=== PATIENT | female | born 1950 | race Caucasian/White ===

== ENCOUNTER 2017-03-11 21:05 | Emergency (ER) | payer SELFPAY, OTHER, MEDICARE | END 2017-03-12 00:55 | disposition left against medical advice (07) | LOC: E/R 21:05 | DX: Z53.21 Procedure and treatment not carried out due to patient leaving prior to being seen by health care provider (principal) ==

== ENCOUNTER 2017-03-13 11:44 | Emergency (ER) | payer MEDICARE, OTHER ==
[2017-03-13 15:56] LABS: ANION GAP 13 (8-16); BLOOD UREA NITROGEN 14 mg/dl (7-20); CALCIUM 9.3 mg/dl (8.4-10.2); CARBON DIOXIDE 26 mmol/L (21-31); CHLORIDE 102 mmol/L (97-110); CREATININE 0.71 mg/dl (0.44-1.00); GLUCOSE 98 mg/dl (70-220); POTASSIUM 4.6 mmol/L (3.5-5.1); SODIUM 136 mmol/L (135-144)
[2017-03-13] MEDS: SOD CHLORIDE 0.9% 100 ML (16:48)
[2017-03-13] MEDS: IOHEXOL 300MG/ML 150 ML BTL (16:49)
== END 2017-03-13 18:26 | disposition home or self-care (01) ==
LOC: FTE 11:44
DX: N39.0 Urinary tract infection, site not specified (principal); F41.8 Other specified anxiety disorders; I10 Essential (primary) hypertension; Z87.448 Personal history of other diseases of urinary system; Z79.82 Long term (current) use of aspirin
CPT/HCPCS: 72194; 80048; 99285-25

== ENCOUNTER 2017-08-29 17:00 | Emergency (ER) | payer MEDICARE, OTHER | END 2017-08-29 18:40 | disposition home or self-care (01) | LOC: FTE 17:00 | DX: J01.90 Acute sinusitis, unspecified (principal); I10 Essential (primary) hypertension; Z79.82 Long term (current) use of aspirin | CPT/HCPCS: 99284 ==

== ENCOUNTER 2018-01-03 16:00 | Emergency (ER) | payer MEDICARE, OTHER ==
[2018-01-03 17:02] LABS: ADD MAN DIFF? NO
[2018-01-03 17:03] LABS: WHITE BLOOD COUNT 7.8 10^3/ul (4.8-10.8)
[2018-01-03 17:03] LABS: BASOPHIL # 0.1 10^3/ul (0.0-0.1); BASOPHILS % 0.9 % (0.0-2.0); EOSINOPHILS # 0.3 10^3/ul (0.0-0.5); EOSINOPHILS % 4.4 % (0.0-7.0); HEMATOCRIT 39.2 % (37.0-47.0); HEMOGLOBIN 13.2 g/dl (12.0-16.0); LYMPHOCYTES # 2.4 10^3/ul (0.8-2.9); LYMPHOCYTES % 31.4 % (15.0-51.0); MEAN CORPUSCULAR HEMOGLOBIN 31.2 pg (29.0-33.0); MEAN CORPUSCULAR HGB CONC 33.7 g/dl (32.0-37.0); MEAN CORPUSCULAR VOLUME 92.7 fl (82.0-101.0); MEAN PLATELET VOLUME 10.5 fl (7.4-10.4); MONOCYTE # 0.8 10^3/ul (0.3-0.9); MONOCYTES % 10.7 % (0.0-11.0); NEUTROPHIL # 4.1 10^3/ul (1.6-7.5); NEUTROPHILS % 52.2 % (39.0-77.0); PLATELET COUNT 281 10^3/UL (140-415); RED BLOOD COUNT 4.23 10^6/ul (4.20-5.40); RED CELL DISTRIBUTION WIDTH 12.2 % (11.5-14.5)
[2018-01-03] MEDS: SOD CHLORIDE 0.9% 1,000 ML IV (17:03)
[2018-01-03] MEDS: HYDROmorphONE 1 MG/ML SYG IV (17:03)
[2018-01-03] MEDS: ONDANSETRON 4 MG INJ IV (17:03)
[2018-01-03 17:17] LABS: ADD UMIC YES; UR ASCORBIC ACID NEGATIVE (NEGATIVE); UR BACTERIA MODERATE /HPF (NONE SEEN); UR BILIRUBIN (Dip) NEGATIVE (NEGATIVE); UR BLOOD (Dip) 2+ mg/dL (NEGATIVE); UR CLARITY SLIGHTLY CLOUDY (CLEAR); UR COLOR YELLOW (YELLOW); UR GLUCOSE (Dip) NEGATIVE (NEGATIVE); UR KETONES (Dip) NEGATIVE (NEGATIVE); UR LEUKOCYTE ESTERASE (Dip) 2+ Leu/ul (NEGATIVE); UR MUCUS FEW /HPF (NONE SEEN); UR NITRITE (Dip) POSITIVE (NEGATIVE); UR RBC 7 /HPF (0-5); UR SPECIFIC GRAVITY (Dip) 1.021 (1.003-1.030); UR TOTAL PROTEIN (Dip) NEGATIVE (NEGATIVE); UR UROBILINOGEN (Dip) 1+ mg/dL (NEGATIVE); UR WBC 58 /HPF (0-5)
[2018-01-03 17:22] LABS: ANION GAP 9 (5-13); BLOOD UREA NITROGEN 20 mg/dl (7-20); CALCIUM 10.1 mg/dl (8.4-10.2); CARBON DIOXIDE 25 mmol/L (21-31); CHLORIDE 106 mmol/L (97-110); CREATININE 0.68 mg/dl (0.44-1.00); Estimated GFR > 60 mL/min (>60); GLUCOSE 116 mg/dl (70-220); POTASSIUM 4.1 mmol/L (3.5-5.1); SODIUM 140 mmol/L (135-144)
== END 2018-01-03 19:03 | disposition home or self-care (01) ==
LOC: FTE 16:00 → E/R 19:03
DX: R10.32 Left lower quadrant pain (principal); I10 Essential (primary) hypertension; Z79.82 Long term (current) use of aspirin
CPT/HCPCS: 36415; 74176; 80048; 81001; 85025; 96374; 96375; 99285-25

== ENCOUNTER 2018-01-05 11:49 | Emergency (ER) | payer MEDICARE, OTHER ==
[2018-01-05] MEDS: ONDANSETRON 4 MG INJ IV ×2 (12:34→14:03)
[2018-01-05] MEDS: morphine 4 MG/ML VIAL IV ×2 (12:34→14:04)
[2018-01-05] MEDS: SOD CHLORIDE 0.9% 1,000 ML IV (12:34)
[2018-01-05 12:38] LABS: ADD MAN DIFF? NO
[2018-01-05 12:42] LABS: WHITE BLOOD COUNT 6.1 10^3/ul (4.8-10.8)
[2018-01-05 12:42] LABS: BASOPHIL # 0.1 10^3/ul (0.0-0.1); BASOPHILS % 1.3 % (0.0-2.0); EOSINOPHILS # 0.2 10^3/ul (0.0-0.5); EOSINOPHILS % 3.3 % (0.0-7.0); HEMATOCRIT 37.1 % (37.0-47.0); HEMOGLOBIN 12.7 g/dl (12.0-16.0); LYMPHOCYTES # 1.4 10^3/ul (0.8-2.9); MEAN CORPUSCULAR HEMOGLOBIN 31.5 pg (29.0-33.0); MEAN CORPUSCULAR HGB CONC 34.2 g/dl (32.0-37.0); MEAN CORPUSCULAR VOLUME 92.1 fl (82.0-101.0); MEAN PLATELET VOLUME 10.8 fl (7.4-10.4); MONOCYTE # 0.6 10^3/ul (0.3-0.9); MONOCYTES % 9.3 % (0.0-11.0); NEUTROPHIL # 3.9 10^3/ul (1.6-7.5); NEUTROPHILS % 62.9 % (39.0-77.0); PLATELET COUNT 249 10^3/UL (140-415); RED BLOOD COUNT 4.03 10^6/ul (4.20-5.40); RED CELL DISTRIBUTION WIDTH 11.9 % (11.5-14.5)
[2018-01-05 13:00] LABS: ADD UMIC YES; UR ASCORBIC ACID NEGATIVE (NEGATIVE); UR BACTERIA MODERATE /HPF (NONE SEEN); UR BILIRUBIN (Dip) NEGATIVE (NEGATIVE); UR BLOOD (Dip) 1+ mg/dL (NEGATIVE); UR CLARITY CLEAR (CLEAR); UR COLOR YELLOW (YELLOW); UR GLUCOSE (Dip) NEGATIVE (NEGATIVE); UR KETONES (Dip) NEGATIVE (NEGATIVE); UR LEUKOCYTE ESTERASE (Dip) 2+ Leu/ul (NEGATIVE); UR NITRITE (Dip) NEGATIVE (NEGATIVE); UR RBC 1 /HPF (0-5); UR SPECIFIC GRAVITY (Dip) 1.008 (1.003-1.030); UR TOTAL PROTEIN (Dip) NEGATIVE (NEGATIVE); UR UROBILINOGEN (Dip) NEGATIVE (NEGATIVE); UR WBC 10 /HPF (0-5)
[2018-01-05 13:07] LABS: ALANINE AMINOTRANSFERASE 39 IU/L (13-69); ALBUMIN 3.9 g/dl (3.3-4.9); ALKALINE PHOSPHATASE 120 IU/L (42-121); ANION GAP 10 (5-13); ASPARTATE AMINO TRANSFERASE 20 IU/L (15-46); BILIRUBIN,INDIRECT 0.4 mg/dl (0-1.1); BILIRUBIN,TOTAL 0.4 mg/dl (0.2-1.3); BLOOD UREA NITROGEN 14 mg/dl (7-20); CALCIUM 9.6 mg/dl (8.4-10.2); CARBON DIOXIDE 23 mmol/L (21-31); CHLORIDE 105 mmol/L (97-110); CREATININE 0.61 mg/dl (0.44-1.00); Estimated GFR > 60 mL/min (>60); GLUCOSE 117 mg/dl (70-220); LIPASE 145 U/L (23-300); SODIUM 138 mmol/L (135-144); TOTAL PROTEIN 6.9 g/dl (6.1-8.1)
[2018-01-05] MEDS: IBUPROFEN 600 MG TAB PO (14:02)
[2018-01-05] MEDS: HYDROCODONE/APAP (5/325) TAB PO (14:03)
[2018-01-05] MEDS: CIPROFLOXACIN 400MG/D5W 200 ML IVPB (14:04)
== END 2018-01-05 15:15 | disposition home or self-care (01) ==
LOC: E/R 15:15
DX: N12 Tubulo-interstitial nephritis, not specified as acute or chronic (principal); I10 Essential (primary) hypertension; Z79.82 Long term (current) use of aspirin
CPT/HCPCS: 36415; 80053; 81001; 83690; 85025; 87086; 96374; 96375; 96376; 99284-25

== ENCOUNTER 2018-08-13 13:29 | Emergency (ER) | payer OTHER, MEDICAID, MEDICARE ==
[2018-08-13] MEDS: HYDROCODONE/APAP (5/325) TAB PO (14:42)
[2018-08-13] MEDS: ONDANSETRON (ODT) 4 MG TAB ODT (14:42)
[2018-08-13] MEDS: DEXAMETHASONE 10 MG/ML 1 ML INJ IM (14:42)
== END 2018-08-13 14:53 | disposition home or self-care (01) ==
LOC: FTE 13:29
DX: M54.5 Low back pain (principal); I10 Essential (primary) hypertension; Z96.643 Presence of artificial hip joint, bilateral; Z79.82 Long term (current) use of aspirin
CPT/HCPCS: 96372; 99284-25

== ENCOUNTER 2018-09-03 05:24 | Observation (INO) | payer OTHER, MEDICAID ==
[2018-09-03] MEDS ORDERED: LACTATED RINGER'S 1,000 ML IV (06:00)
[2018-09-03 07:02] LABS: ALANINE AMINOTRANSFERASE 29 IU/L (13-69); ALBUMIN 3.9 g/dl (3.3-4.9); ALKALINE PHOSPHATASE 95 IU/L (42-121); ANION GAP 8 (5-13); ASPARTATE AMINO TRANSFERASE 19 IU/L (15-46); BILIRUBIN,INDIRECT 0.4 mg/dl (0-1.1); BILIRUBIN,TOTAL 0.4 mg/dl (0.2-1.3); BLOOD UREA NITROGEN 15 mg/dl (7-20); CALCIUM 9.5 mg/dl (8.4-10.2); CARBON DIOXIDE 24 mmol/L (21-31); CHLORIDE 110 mmol/L (97-110); CREATININE 0.56 mg/dl (0.44-1.00); Estimated GFR > 60 mL/min (>60); GLUCOSE 123 mg/dl (70-220); POTASSIUM 4.3 mmol/L (3.5-5.1); SODIUM 142 mmol/L (135-144); TOTAL PROTEIN 6.9 g/dl (6.1-8.1)
[2018-09-03] MEDS ORDERED: PROPOFOL 20 ML ×5 (07:20→11:10)
[2018-09-03] MEDS ORDERED: FENTAnyl 50 MCG/ML VIAL (07:21)
[2018-09-03 07:22] LABS: INR 0.85; PROTIME 11.7 Sec (11.9-14.9); PT RATIO 0.9
[2018-09-03 07:23] LABS: PARTIAL THROMBOPLASTIN TIME 27.1 Sec (23.0-35.0)
[2018-09-03] MEDS ORDERED: CLINDAMYCIN 900 MG/D5W (PMX) 50 ML IVPB (07:53)
[2018-09-03] MEDS ORDERED: DEXAMETHASONE 4 MG/ML 5 ML INJ (08:01)
[2018-09-03] MEDS ORDERED: FAMOTIDINE 20 MG INJ (08:01)
[2018-09-03] MEDS ORDERED: HYDROmorphONE 2 MG/ML SYG (08:03)
[2018-09-03] MEDS ORDERED: EPHEDrine 25 MG/5 ML SYG (08:12)
[2018-09-03] MEDS: BUPIVACAINE 0.5%/EPI (SDV) 30 ML INJ (08:31)
[2018-09-03] MEDS: POLYMYXIN/BACITRACIN 1L IRRIG (08:31)
[2018-09-03] MEDS: THROMBIN 5000 UNIT VIAL (08:32)
[2018-09-03] MEDS: HEMOSTATIC MATRIX/ THROMBIN 1 EA SYG ZFS (08:36)
[2018-09-03] MEDS: GELATIN SIZE 100 SPONGE (08:36)
[2018-09-03] MEDS ORDERED: LIDOCAINE 2% (SDV) 5 ML INJ (08:37)
[2018-09-03] MEDS ORDERED: ROCURONIUM 50 MG INJ (08:37)
[2018-09-03] MEDS ORDERED: SUCCINYLCHOLINE CHLORIDE 100 MG/5 ML SYG IV (08:37)
[2018-09-03] MEDS ORDERED: NEOSTIGMINE 3 MG/3 ML SYRINGE ×2 (10:41→11:03)
[2018-09-03] MEDS ORDERED: GLYCOPYRROLATE 0.4 MG INJ (10:41)
[2018-09-03] MEDS ORDERED: ONDANSETRON 4 MG INJ (10:41)
[2018-09-03] MEDS ORDERED: METOCLOPRAMIDE 10 MG INJ IV (11:30)
[2018-09-03] MEDS ORDERED: HYDROmorphONE 1 MG/5 ML IV SYRINGE IV ×2 (11:30)
[2018-09-03] MEDS ORDERED: MIDAZOLAM 1 MG/ML 2 ML INJ IV (11:30)
[2018-09-03] MEDS ORDERED: NALOXONE (0.4 MG/ML) INJ IV (11:30)
[2018-09-03] MEDS ORDERED: AL HYDROX/MG HYDROX/SIMETH 30 ML CUP PO (11:30)
[2018-09-03] MEDS ORDERED: HYDROCODONE/APAP (5/325) TAB PO ×2 (11:30)
[2018-09-03] MEDS ORDERED: MEPERIDINE 25 MG INJ IV (11:30)
[2018-09-03] MEDS ORDERED: FENTAnyl 50 MCG/ML VIAL IV (11:30)
[2018-09-03] MEDS ORDERED: HYDROmorphONE 0.5 MG/0.5 ML SYG IV (11:30)
[2018-09-03] MEDS ORDERED: PROCHLORPERAZINE 10 MG TAB PO (11:30)
[2018-09-03] MEDS ORDERED: ONDANSETRON 4 MG INJ IV ×2 (11:30)
[2018-09-03] MEDS ORDERED: NACL 0.9% 3 ML SYG IV (11:30)
[2018-09-03] MEDS: VANCOMYCIN 1 GM (PMX) 250 ML IVPB ×2 (13:09→23:23)
[2018-09-03] MEDS: ATORVASTATIN 80 MG TAB PO (20:44)
[2018-09-03] MEDS: FAMOTIDINE 20 MG TAB PO (20:44)
[2018-09-04 05:05] LABS: HEMATOCRIT 33.3 % (37.0-47.0); HEMOGLOBIN 11.5 g/dl (12.0-16.0)
[2018-09-04 05:33] LABS: ANION GAP 6 (5-13); BLOOD UREA NITROGEN 12 mg/dl (7-20); CALCIUM 9.1 mg/dl (8.4-10.2); CARBON DIOXIDE 26 mmol/L (21-31); CHLORIDE 108 mmol/L (97-110); CREATININE 0.52 mg/dl (0.44-1.00); Estimated GFR > 60 mL/min (>60); GLUCOSE 124 mg/dl (70-220); POTASSIUM 4.1 mmol/L (3.5-5.1); SODIUM 140 mmol/L (135-144)
[2018-09-04] MEDS: ACETAMINOPHEN 325 MG TAB PO (08:18)
[2018-09-04] MEDS: PROPRANOLOL (LA) 60 MG CAP PO (08:19)
[2018-09-04] MEDS: DOCUSATE SODIUM 100 MG CAP PO (08:20)
[2018-09-04] MEDS: CITALOPRAM 20 MG TAB PO (08:20)
== END 2018-09-04 13:45 | disposition home or self-care (01) ==
LOC: SDS 05:24 → MS1 13:21
DX: M48.061 Spinal stenosis, lumbar region without neurogenic claudication (principal); M51.16 Intervertebral disc disorders with radiculopathy, lumbar region; I10 Essential (primary) hypertension; E78.5 Hyperlipidemia, unspecified; K21.9 Gastro-esophageal reflux disease without esophagitis; Z79.82 Long term (current) use of aspirin
CPT/HCPCS: 63030; 72100; 80048; 80053; 85014; 85018; 85610; 85730; 88304; 97116; 97161; 97530